=== PATIENT | female | born 1970 | race Caucasian/White ===

== ENCOUNTER → 2017-01-01 | Outpatient (CLI) | payer OTHER ==
--- NOTE | 2017-01-01 14:36 | RAD ---
DATE: 01/01/2017 EXAM: MAMMO CELESTINE SCREENING BILATERAL HISTORY: Screening COMPARISON: 04/19/2015 This study was interpreted with the benefit of Computerized Aided Detection (CAD). FINDINGS: Breast Density: SCATTERED The breast parenchyma shows scattered fibroglandular densities. Breast parenchyma level B. There has not been a significant change. Asymmetric density superiorly in the left breast, on the MLO view, compatible with summation artifact appears unchanged IMPRESSION: Benign finding BI-RADS CATEGORY: 2 BENIGN FINDING(S) RECOMMENDED FOLLOW-UP: 12M 12 MONTH FOLLOW-UP PQRS compliance statement: Patient information was entered into a reminder system with a target due date 01/01/2018 for the next mammogram. Mammography is a sensitive method for finding small breast cancers, but it does not detect them all and is not a substitute for careful clinical examination. A negative mammogram does not negate a clinically suspicious finding and should not result in delay in biopsying a clinically suspicious abnormality. "Our facility is accredited by the [employer] Mammography [employer]."
== END | disposition home or self-care (01) ==
LOC: MAMMO 11:47
PROVIDERS: ATTEND Obstetrics & Gynecology
DX: Z12.31 Encounter for screening mammogram for malignant neoplasm of breast (principal)
CPT/HCPCS: 77063; G0202; 77067

== ENCOUNTER 2019-12-06 17:47 | Emergency (ER) | payer OTHER ==
[~2019-12-06] VITALS: Ht 167.6 cm; Wt 109.0 kg
[2019-12-06] MEDS ORDERED: traMADol 50 MG TABLET PO ONE (18:15)
[2019-12-06] MEDS ORDERED: KETOROLAC 30 MG/ML VIAL. IM ONE (18:15)
[2019-12-06 18:17] VITALS: BP 153/87
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
[2019-12-06] MEDS ORDERED: TRAM50TA PO (18:55)
== END 2019-12-06 19:10 | disposition home or self-care (01) ==
LOC: ER 17:47
DX: S83.92XA Sprain of unspecified site of left knee, initial encounter (principal); V89.2XXA Person injured in unspecified motor-vehicle accident, traffic, initial encounter; Y93.89 Activity, other specified; Y92.89 Other specified places as the place of occurrence of the external cause; Y99.8 Other external cause status
CPT/HCPCS: 73562; 96372; 99283; J1885

== ENCOUNTER → 2019-12-19 | Outpatient (CLI) | payer OTHER ==
[2019-12-06 18:17] VITALS: BP 153/87
[~2019-12-19] MED LIST: TRAM50TA PO
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
== END | disposition home or self-care (01) ==
LOC: DXRAD 14:32
PROVIDERS: ATTEND Orthopaedic Surgery
DX: M17.12 Unilateral primary osteoarthritis, left knee (principal)
CPT/HCPCS: 73562; 73565

== ENCOUNTER → 2020-08-20 | Outpatient (CLI) | payer OTHER ==
--- NOTE | 2020-08-21 18:00 | RAD ---
DATE: 08/20/2020 EXAM: MAMMO CELESTINE SCREENING BILATERAL HISTORY: Screening COMPARISON: 11/05/2015, 04/19/2015, 01/01/2017 This study was interpreted with the benefit of Computerized Aided Detection (CAD). Breast Density: HETERO The breast parenchyma is heterogenously dense, which could reduce sensitivity of mammography. Breast parenchyma level C. FINDINGS: An asymmetry in the upper left breast on MLO view is unchanged from 2016. No mass, suspicious calcification, or architectural distortion in either breast. IMPRESSION: No evidence of malignancy. BI-RADS CATEGORY: 1 NEGATIVE RECOMMENDED FOLLOW-UP: 12M 12 MONTH FOLLOW-UP PQRS compliance statement: Patient information was entered into a reminder system with a target due date for the next mammogram. Mammography is a sensitive method for finding small breast cancers, but it does not detect them all and is not a substitute for careful clinical examination. A negative mammogram does not negate a clinically suspicious finding and should not result in delay in biopsying a clinically suspicious abnormality. "Our facility is accredited by the [employer]amm[employer]."
== END ==
LOC: MAMMO 08:55
PROVIDERS: ATTEND Obstetrics & Gynecology
DX: Z12.31 Encounter for screening mammogram for malignant neoplasm of breast (principal)
CPT/HCPCS: 77063; 77067